=== PATIENT | male | born 2000 | race Caucasian/White ===

== ENCOUNTER 2020-12-31 14:32 | Observation (INO) ==
[2020-12-31] MEDS ORDERED: 0.9 % Sodium Chloride 1,000 ML IVC ONE (14:56)
[2020-12-31] MEDS ORDERED: Ketorolac 30 MG/ML VIAL IVP ONE (14:56)
[2020-12-31] MEDS ORDERED: Ondansetron 4 MG/2 ML VIAL IVP ONE (14:56)
[2020-12-31 15:04] LABS: Basophils # 0.1 K/mcL (0.0-0.2); Basophils % 0.5 %; Eosinophils # 0.4 K/mcL (0.0-0.6); Eosinophils % 3.2 %; Hematocrit 47.9 % (37.5-50.1); Hemoglobin 15.9 g/dL (12.9-16.9); Immature Granulocytes % 0.3 % (0-4); Lymphocytes # 1.5 K/mcL (0.6-4.6); Lymphocytes % 13.4 %; Mean Corpuscular HGB Conc 33.2 g/dL (31.6-35.5); Mean Corpuscular Hemoglobin 28.7 pg (28.0-33.3); Mean Corpuscular Volume 86.5 fL (83.0-100.0); Mean Platelet Volume 9.9 fL (9.4-12.4); Monocytes # 0.6 K/mcL (0.0-1.3); Monocytes % 5.3 %; Neutrophils # 8.9 K/mcL (1.6-8.9); Platelet Count 248 K/mcL (140-400); Red Blood Count 5.54 M/mcL (4.19-5.50); Red Cell Distribution Width 12.6 % (11.5-14.5); Segmented Neutrophils % 77.3 %; White Blood Count 11.5 K/mcL (4.3-11.1)
[2020-12-31 15:21] LABS: Bilirubin,Urine Negative (Negative); Blood,Urine Negative (Negative); Clarity,Urine Clear (Clear); Color,Urine Light-Yellow (Yellow); Glucose,Urine (UA) Normal (Normal); Ketones,Urine Negative (Negative); Leukocyte Esterase,Urine Negative (Negative); Nitrite,Urine Negative (Negative); Protein,Urine Trace mg/dL (Neg-Trace); Specific Gravity,Urine 1.027 (1.010-1.025); Urobilinogen,Urine Normal (Normal)
[2020-12-31 15:27] LABS: Alanine Aminotransferase 27 Units/L (7-52); Albumin 4.6 g/dL (3.5-5.7); Albumin/Globulin Ratio 1.2 (1.1-2.2); Alkaline Phosphatase 76 Units/L (34-104); Aspartate Amino Transferase 28 Units/L (13-39); BUN/Creatinine Ratio 14 (6-26); Bilirubin,Direct 0.1 mg/dL (0.0-0.2); Bilirubin,Indirect 0.5 mg/dL (0.0-1.0); Bilirubin,Total 0.6 mg/dL (0.3-1.0); Blood Urea Nitrogen 12 mg/dL (6-20); Calcium 9.4 mg/dL (8.6-10.3); Carbon Dioxide 28 mEq/L (23-29); Chloride 102 mEq/L (98-107); Globulin 3.7 g/dL (2.4-3.5); Glucose 93 mg/dL (70-105); Lipase 39 Units/L (11-82); Osmolality,Calculated 285 (280-300); Potassium 3.7 mEq/L (3.5-5.1); Sodium 138 mEq/L (136-145); Total Protein 8.3 g/dL (6.4-8.9); eGFR For African Americans > 60 (> 60); eGFR For Non-African Americans > 60 (> 60)
[2020-12-31] MEDS ORDERED: Isovue-370 500 ML BOTTLE IVP ONE (15:28)
[2020-12-31] MEDS ORDERED: Piperacillin/Tazobactam 3.375 GM in 0.9 % Sodium Chloride Mini Bag 100 ML IVPB ONE (18:00)
[2020-12-31] MEDS: 0.9 % Sodium Chloride 1,000 ML IVC SCH (18:18)
[2021-01-01] MEDS: Piperacillin/Tazobactam 3.375 GM in 0.9 % Sodium Chloride Mini Bag 100 ML IVPB SCH ×3 (00:35→15:59)
[2021-01-01] MEDS: 0.9 % Sodium Chloride 1,000 ML IVC SCH ×4 (07:18→23:46)
[2021-01-01] MEDS ORDERED: *HR* HYDROmorphone PF 0.5 MG/0.5 ML SYRINGE IVP PRN (07:47)
[2021-01-01] MEDS ORDERED: *HR* FentaNYL (PF) 100 MCG/2 ML VIAL IVP PRN (07:47)
[2021-01-01] MEDS ORDERED: *HR* Midazolam HCl 2 MG/2 ML VIAL IVP PRN (07:47)
[2021-01-01] MEDS ORDERED: CefOXitin 1,000 MG VIAL ONE (12:49)
[2021-01-01] MEDS ORDERED: *HR* Midazolam HCl 2 MG/2 ML VIAL ONE (12:59)
[2021-01-01] MEDS ORDERED: *HR* Propofol 200 MG/20 ML VIAL IVP ONE (13:00)
[2021-01-01] MEDS ORDERED: *HR* FentaNYL (PF) 100 MCG/2 ML VIAL ONE (13:00)
[2021-01-01] MEDS ORDERED: Lidocaine -MPF 2% 5 ML VIAL ONE ×2 (13:03→14:18)
[2021-01-01] MEDS ORDERED: Lidocaine HCL 4 ML Topical Solution (Laryng-O-Jet Kit Sterile Pak) TP ONE (13:03)
[2021-01-01] MEDS ORDERED: *HR* Rocuronium Bromide 50 MG/5 ML VIAL ONE (13:03)
[2021-01-01] MEDS ORDERED: Ondansetron 4 MG/2 ML VIAL ONE (13:03)
[2021-01-01] MEDS ORDERED: *HR* Succinylcholine 200 MG/10 ML VIAL IVP ONE (13:03)
[2021-01-01] MEDS ORDERED: *HR* HYDROMORPHONE 2 MG/ML VIAL ONE (13:49)
[2021-01-01] MEDS ORDERED: Acetaminophen IV 1,000 MG/100 ML BAG IVPB ONE (13:54)
[2021-01-01] MEDS: *HR* OxyCODONE/APAP 5/325 TABLET PO PRN (22:22)
[2021-01-02] MEDS: Piperacillin/Tazobactam 3.375 GM in 0.9 % Sodium Chloride Mini Bag 100 ML IVPB SCH ×2 (00:24→07:31)
[2021-01-02 07:12] VITALS: BP 164/84; PULSE 58; TEMP 98.3; O2SAT 99
[2021-01-02] MEDS: *HR* OxyCODONE/APAP 5/325 TABLET PO PRN (07:31)
== END 2021-01-02 12:05 | disposition home or self-care (01) ==
LOC: EMEROOARM 14:32 → 3BNU 14:32
PROVIDERS: ADMIT Surgery; ATTEND Surgery